=== PATIENT | male | born 2000 ===

== ENCOUNTER 2020-01-01 18:06 | Emergency (ER) | payer OTHER ==
[~2020-01-01] VITALS: Ht 175.3 cm; Wt 86.2 kg
[2020-01-01] MEDS ORDERED: VISTARIL50 MG PO (22:15)
== END 2020-01-01 22:23 | disposition home or self-care (01) ==
LOC: ER 18:06
DX: R06.02 Shortness of breath (principal); R20.0 Anesthesia of skin; F41.0 Panic disorder [episodic paroxysmal anxiety]; F43.0 Acute stress reaction; Z03.818 Encounter for observation for suspected exposure to other biological agents ruled out